=== PATIENT | male | born 1975 | race Caucasian/White ===

== ENCOUNTER 2025-02-18 10:54 | Outpatient (REF) | payer MEDICAID, SELFPAY ==
[2025-02-20 10:19] LABS: HIV-1/2 Ag & Ab Screen Negative (Negative)
[2025-02-20 10:36] LABS: Hepatitis C Ab w Rflx HCV PCR Negative (Negative)
[2025-02-20 10:38] LABS: HSV Type 1 Ab, IgG Negative (Negative); HSV Type 2 Ab, IgG Negative (Negative)
[2025-02-20 11:43] LABS: Syphilis Serology (RPR) Negative (Negative)
[2025-02-20 11:49] LABS: Chlamydia Result Negative (Negative); GC Result Negative (Negative)
== END 2025-02-18 10:55 | disposition home or self-care (01) ==
LOC: LBN 10:54
PROVIDERS: Visit Provider Nurse Practitioner Family
DX: Z11.3 Encounter for screening for infections with a predominantly sexual mode of transmission (principal)
CPT/HCPCS: 86803; 87389; 87491; 87591; 86592; 86695; 86696